=== PATIENT | male | born 1955 | race Caucasian/White ===

== ENCOUNTER → 2022-12-16 10:32 | Outpatient (BNVA) | payer MEDICARE, SELFPAY | PROVIDERS: PCP Family Medicine; Visit Provider Family Medicine | DX: R73.09 Other abnormal glucose (principal); E11.9 Type 2 diabetes mellitus without complications; R35.0 Frequency of micturition; R01.1 Cardiac murmur, unspecified; R09.89 Other specified symptoms and signs involving the circulatory and respiratory systems; Z13.220 Encounter for screening for lipoid disorders; Z51.81 Encounter for therapeutic drug level monitoring | CPT/HCPCS: 80053; 80061; 83036; 84153; 85025 ==

== ENCOUNTER 2022-12-31 11:43 | Outpatient (CLI) | payer MEDICARE, SELFPAY ==
--- NOTE | 2022-12-31 12:30 | USCV_ITS ---
Dante Wang Age: 67 Gender: M : 1955 Exam Date: 12/31/2022 13:16 Ordering Phys: Yves Ross MD Technologist: CT Exam Location: [facility] – [place] Indication: Risk Factors: Previous Vascular Surgery: Right Brachial BP: / Left Brachial BP: / Right Left Velocity (cm/s) Spectral Plaque Velocity (cm/s) Spectral Plaque Syst/Diast Broadening Syst/Diast Broadening 65.10/ 18.90 Prox CCA 86.00 / 23.30 64.30/ 19.80 Mid CCA 77.80 / 21.60 65.90/ 20.60 Distal CCA 103.20/ 28.10 62.20/ 24.50 Prox ICA 69.40 / 20.50 58.00/ 21.40 Mid ICA 62.10 / 23.80 57.30/ 23.50 Distal ICA 50.30 / 20.70 69.50 ECA 73.20 0.94 ICA/CCA 0.67 Antegrade Vertebral Antegrade 40.00/ 17.30 cm/s 35.50/ 9.40 cm/s Tri Subclavian Tri 81.50 83.40 CONCLUSIONS Right ICA stenosis <50%. Mild atheromatous plaque right carotid bulb/ICA. Left ICA stenosis <50%. Mild atheromatous plaque left carotid bulb/ICA. Normal antegrade Doppler flow noted in the right vertebral artery. Normal antegrade Doppler flow noted in the left vertebral artery. Abiel Dacosta MD (Electronically Signed) Final Date: 31 December 2022 14:28 S
--- NOTE | 2022-12-31 13:00 | USCV_ITS ---
Dante Wang Age: 67 Gender: M : 1955 Exam Date: 12/31/2022 12:42 Ordering Phys: Yves Ross MD Technologist: [place] [facility] [place]: murmur BP: 140 / 80 HR: 55 Rhythm: Sinus Technical Quality: Adequate MEASUREMENTS (Male / Female) Normal Values 2D ECHO LV Diastolic Diameter PLAX 5.2 cm 4.2 - 5.9 / 3.9 - 5.3 cm LV Systolic Diameter PLAX 2.7 cm LV Chamber Size 4.8 cm IVS Diastolic Thickness 0.9 cm 0.6 - 1.0 / 0.6 - 0.9 cm IVS Systolic Thickness 1.9 cm LVPW Diastolic Thickness 1.0 cm 0.6 - 1.0 / 0.6 - 0.9 cm LVPW Systolic Thickness 1.5 cm RV Chamber Size 4.1 cm LVOT Diameter 2.0 cm LV Ejection Fraction 2D Teich 76.5 % LV Ejection Fraction MOD 2C 64.8 % LV Ejection Fraction 2C AL 63.9 % LA Diameter 3.8 cm LA Width 4.5 cm LA Height 4.7 cm RA Width 4.2 cm RA Height 4.7 cm Aorta at Sinotubular Diameter 2.0 cm IVC Diameter 1.5 cm M-MODE Aortic Annulus Diameter 2.6 cm LA Ao Ratio MM 1.5 MV E Point Septal Separation 0.7 cm DOPPLER AV Peak Velocity 328.0 cm/s LVOT Peak Velocity 138.0 cm/s AV Area Cont Eq vti 1.5 cm squared AV Area Cont Eq pk 1.3 cm squared MV Peak Velocity 108.0 cm/s MV Area PHT 4.8 cm squared Mitral E to A Ratio 0.9 MV E' Velocity 48.5 cm/s Mitral E to MV E' Ratio 10.6 Mitral E to LV E' Lateral Ratio 9.1 Mitral E to LV E' Septal Ratio 12.7 TR Peak Velocity 218.3 cm/s TR Peak Gradient 19.1 mmHg TV Peak E Velocity 71.0 cm/s Right Atrial Pressure 3.0 mmHg Pulmonary Artery Systolic Pressu 22.1 mmHg PV Peak Velocity 106.0 cm/s FINDINGS Left Ventricle Left ventricle is normal in size. LV systolic function is normal with EF of 60 to 65%. No regional wall motion abnormalities are seen. Right Ventricle Normal in size and function Right Atrium Normal in size Left Atrium Normal in size Mitral Valve Structurally normal mitral valve. Mild mitral regurgitation. Aortic Valve Aortic valve is thickened and calcified. Mild to moderate aortic stenosis with aortic valve area of 1.5 cm2 and mean gradient across aortic valve of 22.6 mmHg. Mild aortic regurgitation. Tricuspid Valve Mild tricuspid regurgitation. Pulmonary artery systolic pressure is normal. Pulmonic Valve Not well-visualized. Mild pulmonic regurgitation. Pericardium Normal Aorta Normal in size IVC Appears to be normal CONCLUSIONS LV systolic function is normal with EF of 60 to 65%. Mild mitral regurgitation Aortic valve is thickened and calcified. Mild to moderate aortic stenosis. Mild aortic regurgitation Mild tricuspid regurgitation Mild pulmonic regurgitation. No comparison studies are available Tu Plaza MD (Electronically Signed) Final Date: 03 January 2023 09:30 S
== END 2022-12-31 11:44 | disposition home or self-care (01) ==
PROVIDERS: PCP Family Medicine; Visit Provider Family Medicine
DX: R09.89 Other specified symptoms and signs involving the circulatory and respiratory systems (principal); R01.1 Cardiac murmur, unspecified; I65.23 Occlusion and stenosis of bilateral carotid arteries; I34.0 Nonrheumatic mitral (valve) insufficiency; I07.1 Rheumatic tricuspid insufficiency; I37.1 Nonrheumatic pulmonary valve insufficiency; I35.2 Nonrheumatic aortic (valve) stenosis with insufficiency
CPT/HCPCS: 93306; 93880